=== PATIENT | male | born 1965 | race Caucasian/White ===

== ENCOUNTER 2025-02-26 07:12 | Day surgery (SDC) | payer BC ==
[2025-02-26] MEDS ORDERED: Ketamine 500 mg/10 ML MDV IV ONE (07:13)
[2025-02-26] MEDS ORDERED: Flumazenil 0.1 MG/ML 5 ML MDV IV ONE (07:13)
[2025-02-26] MEDS ORDERED: Midazolam 1 MG/ML 2 ML SDV IV ONE (07:13)
[2025-02-26] MEDS ORDERED: Propofol 200 MG/20 ML SDV IV ONE (07:13)
[2025-02-26] MEDS: Lactated Ringers 1,000 ML IV SCH (08:02)
[2025-02-26 10:37] VITALS: PULSE 58
[2025-02-26 10:52] VITALS: BP 134/62
== END 2025-02-26 11:04 | disposition home or self-care (01) ==
LOC: FB.SDS 07:12
PROVIDERS: ATTEND Surgery
DX: K57.30 Diverticulosis of large intestine without perforation or abscess without bleeding (principal); K62.5 Hemorrhage of anus and rectum; K42.9 Umbilical hernia without obstruction or gangrene; E66.9 Obesity, unspecified; I12.9 Hypertensive chronic kidney disease with stage 1 through stage 4 chronic kidney disease, or unspecified chronic kidney disease; N18.4 Chronic kidney disease, stage 4 (severe); Z79.4 Long term (current) use of insulin; Z79.82 Long term (current) use of aspirin; Z79.899 Other long term (current) drug therapy; Z68.31 Body mass index [BMI] 31.0-31.9, adult; Z86.0101 Personal history of adenomatous and serrated colon polyps
CPT/HCPCS: 00811; 45378; 82947; A9270; J2003; J2250; J2704; J3490; J7120